=== PATIENT | female | born 1955 | race Caucasian/White ===

== ENCOUNTER 2017-06-01 14:24 | Emergency (ER) | payer BC ==
[2017-06-01] MEDS: HYDROCODONE/APAP (5/325) TAB PO (17:40)
[2017-06-01] MEDS: KETOROLAC 30 MG INJ IM (17:40)
== END 2017-06-01 19:45 | disposition home or self-care (01) ==
LOC: FTE 14:24
DX: S76.011A Strain of muscle, fascia and tendon of right hip, initial encounter (principal); S49.91XA Unspecified injury of right shoulder and upper arm, initial encounter; X58.XXXA Exposure to other specified factors, initial encounter; Y92.9 Unspecified place or not applicable
CPT/HCPCS: 72040; 72100; 73510; 96372; 99284-25

== ENCOUNTER → 2018-10-29 | Outpatient (CLI) | payer MEDICARE, OTHER ==
[~2018-10-29] MED LIST: IOHEXOL 100 ML; METOPROLOL 100 MG TAB; NITROGLYCERIN AEROSOL (4.9 GM); SOD CHLORIDE 0.9% 100 ML
== END | disposition home or self-care (01) ==
LOC: C/S 09:38
DX: R94.39 Abnormal result of other cardiovascular function study (principal); R07.9 Chest pain, unspecified
CPT/HCPCS: 75571; 75571-59; 75574